=== PATIENT | female | born 1955 | race African-American/Black ===

== ENCOUNTER 2019-01-27 12:58 | Emergency (ER) | payer SELFPAY ==
[~2019-01-27] VITALS: Ht 160 cm; Wt 55.8 kg
[~2019-01-27 12:58] MED LIST: AMBIEN5 MG ORAL; AMLODIPINE BESYL5 MG ORAL; ASPIR 8181 MG ORAL; ISENTRESS400 MG ORAL; KLONOPIN1 MG ORAL; LEVOTHYROXINE50 MCG ORAL; LISINOPRIL5 MG ORAL; NAPROXEN500 M2 ORAL; NORVASC5 MG ORAL; TRAMADOL HCL50 MG ORAL; TRUVADA 200 MG1 EAC1 ORAL
[2019-01-27] MEDS ORDERED: CATAPRES0.1 MG ORAL (13:07)
--- NOTE | 2019-01-27 13:14 | NUR ---
ED Nurse Note: pt walked in c/o dry mouth and blisters in mouth, reports swelling and pain in throat area. noted papular lesions in throat, airway intact, no sx resp distress noted. will cont monitor. ER provider at the bedside.
[2019-01-27 13:17] VITALS: BP 155/92
--- NOTE | 2019-01-27 13:22 | Emergency Room Report ---
History of Present Illness General Chief Complaint: Pain Source: Patient Present Illness HPI 64-year-old female with history of CVA, hypertension, and multiple years of tobacco smoke here complaining of few days of extremely dry mouth and papular masses in the back of her son and throat rating it being painful and rating the pain 10 out of 10. Patient also reports that she gets extremely dry mouth however denies extreme thirst and urinary frequency. Patient does not have a primary care physician and has recently had a change of her insurance. Denies drug use, intake of any new medication, ingestion of spicy food, nausea vomiting , chest pain, shortness of breath, palpitation, recent URI symptoms and all other associated symptoms. Patient has been taking ibuprofen for pain with minimal relief. Allergies: Coded Allergies: IBUPROFEN (Verified Allergy, Intermediate, HIVES, 02/16/16) CODEINE (Verified Allergy, Unknown, 07/05/10) Patient History Past Medical History: see triage record Past Surgical History: unable to obtain Pertinent Family History: none Social History: Reports: smoking - tobacco use daily Last Menstrual Period: hystrectomy Now: No Immunizations: UTD Reviewed Nursing Documentation: PMH: Agreed; PSxH: Agreed Nursing Documentation-PMH Past Medical History: No History, Except For Hx Cardiac Problems: No Hx Hypertension: Yes Hx Pacemaker: No Hx Asthma: No Hx COPD: No Hx Diabetes: No Hx Cancer: No Hx Gastrointestinal Problems: No Hx Dialysis: No History Of Psychiatric Problem: No Hx Neurological Problems: Yes Hx Cerebrovascular Accident: No Hx Transient Ischemic Attacks: Yes Hx Seizures: No Review of Systems All Other Systems: negative except mentioned in HPI Physical Exam Vital Signs Date Time Temp Pulse Resp B/P (MAP) Pulse Ox O2 Delivery O2 Flow Rate FiO2 01/27/19 13:02 98.1 61 19 155/92 (113) 96 Room Air Sp02 EP Interpretation: reviewed, normal General Appearance: normal inspection, well appearing, no apparent distress Head: normocephalic, atraumatic Eyes: bilateral eye normal inspection, bilateral eye PERRL ENT: no angioedema, other - oral papular ulcers, and on posterior tongue multiple papules noted Neck: normal inspection, full range of motion, supple Respiratory: normal inspection, chest non-tender, lungs clear, no rhonchi, no wheezing Cardiovascular #1: normal inspection, normal peripheral pulses, regular rate, rhythm, normal capillary refill Gastrointestinal: normal inspection, non tender, soft Genitourinary: no CVA tenderness Musculoskeletal: normal inspection, back normal Neurologic: normal inspection, alert, oriented x3 Psychiatric: normal inspection, judgement/insight normal, memory normal Skin: no rash, palpation normal Lymphatic: normal inspection, no adenopathy Medical Decision Making KIARA Attestation All my diagnosis and treatment plans were reviewed ad discussed with my supervising physician Dr. Harrell Diagnostic Impression: Primary Impression: Xerostomia Additional Impression: Oral ulcer ER Course 64-year-old female with history of CVA, hypertension, and multiple years of tobacco smoke here complaining of few days of extremely dry mouth and papular masses in the back of her son and throat rating it being painful and rating the pain 10 out of 10. Patient also reports that she gets extremely dry mouth however denies extreme thirst and urinary frequency. Patient does not have a primary care physician and has recently had a change of her insurance. Denies drug use, intake of any new medication, ingestion of spicy food, nausea vomiting , chest pain, shortness of breath, palpitation, recent URI symptoms and all other associated symptoms. Patient has been taking ibuprofen for pain with minimal relief. Ddx considered but are not limited to: strep pharyngitis, URI, tonsilitis, benign oral ulcers, malignant oral lesions, xerostomia, sjorgen syndrome Vital signs: are WNL, pt. is afebrile H&PE are most consistent with: xerostomia, oral ulcers unspecified ORDERS: lidocaine oral, ibuprofen(no allergies pt confirmed), acyclovir ED INTERVENTIONS: lidocaine oral DISCHARGE: At this time pt. is stable for d/c to home. Will provide printed patient care instructions, and any necessary prescriptions. Care plan and follow up instructions have been discussed with the patient prior to discharge. I advised the patient to follow-up with the primary care provider gave her a list of clinics to go into for referral to ENT. Last Vital Signs Date Time Temp Pulse Resp B/P (MAP) Pulse Ox O2 Delivery O2 Flow Rate FiO2 01/27/19 13:02 98.1 61 19 155/92 (113) 96 Room Air Disposition: HOME, SELF-CARE Condition: Stable Scripts Lidocaine HCl 2% Viscous (Lidocaine HCl 2% Viscous) 100 Ml Solution 10 ML ORAL TID, #100 ML Prov: Albert Nugent 01/27/19 Acyclovir* (ACYCLOVIR*) 400 Mg Tablet 400 MG ORAL TID for 7 Days, #21 TAB Prov: Albert Nugent 01/27/19 Ibuprofen (Ibuprofen) 800 Mg Tablet 800 MG PO BID, #20 TAB Prov: Albert Nugent 01/27/19 Patient Instructions: Oral Ulcers Additional Instructions: Follow-up with your primary care provider for referral to ear nose throat doctor for biopsy of the oral ulcers due to your extensive tobacco smoking having dry mouth is a secondary effect and to be further investigated by a specialist. Take acyclovir for possibility of oral herpes virus drink a lot of water avoid smoking avoid coffee and salt. Albert Nugent Jan 27, 2019 13:22
[2019-01-27] MEDS ORDERED: IBUPROFEN800 M1 PO (13:30)
[2019-01-27] MEDS ORDERED: ACYCLOVIR400 MG ORAL (13:30)
[2019-01-27] MEDS ORDERED: Lidocaine 2% Visc 15ml soln ORAL ONE (13:30)
[2019-01-27] MEDS ORDERED: LIDOCAINE VISC100 ML ORAL (13:30)
--- NOTE | 2019-01-27 13:35 | NUR ---
ED Nurse Note: pt cleared to be d/c per ER provider, pt discharge and aftercare instruction provided w/ prescription, pt education done via discussion and handout, pt advised to follow up with pcp or return to ed if changes in condition, pt verbalized understanding and agrees with plan, vss, ambulatory w/ steady gait, left w/ all belongings, list of free clinic provided per req.
[2019-01-27 13:36] VITALS: BP 138/76
== END 2019-01-27 13:35 | disposition home or self-care (01) ==
LOC: EMR 13:15
DX: K11.7 Disturbances of salivary secretion (principal); K12.1 Other forms of stomatitis; I10 Essential (primary) hypertension; Z86.73 Personal history of transient ischemic attack (TIA), and cerebral infarction without residual deficits; Z88.6 Allergy status to analgesic agent
CPT/HCPCS: 99282